=== PATIENT | male | born 1950 | race Caucasian/White ===

== ENCOUNTER 2022-03-12 10:00 | Outpatient (RCR) | payer MEDICARE, SELFPAY | END 2022-05-07 15:05 | disposition home or self-care (01) | PROVIDERS: PCP Family Medicine; Visit Provider Orthopaedic Surgery | DX: M17.11 Unilateral primary osteoarthritis, right knee (principal); Z51.89 Encounter for other specified aftercare | CPT/HCPCS: 97110; 97112; 97140; 97162 ==

== ENCOUNTER 2024-11-15 19:02 | Emergency (ER) | payer MEDICARE, SELFPAY ==
--- OUTSIDE RECORDS SUMMARY | 2024-11-15 19:04 | XMS_ITS | Clinical Summary ---
Author Organization [facility] Address [address] [place] [address] Care Team Providers Care Front End Developer Designer Name Role Phone Kristen Radha LUCIANO Unavailable [phone] Diogenes Gregory MD Unavailable [phone] Alok Mayifeld MD Primary Care Provider Allergies Active Allergy Reactions Criticality Noted Date Comments Atorvastatin Other - Describe In Comment Field Low 12/14/2016 Muscle twitching Able to tolerate statin at lower dosage Pravastatin Other - Describe In Comment Field Low 03/15/2017 Muscle twitching at 40 mg dosing Able to tolerate medication at a lower dosage Medications MICROLET LANCET 3 times daily. 03/25/19 20 Active CONTOUR NEXT METER U UTD 03/25/19 20 Active blood sugar diagnostic (Contour Next Test Strips) stripIndications:T ype 2 diabetes mellitus without complication, without long-term current use of insulin (HC) Test once daily. Dispense item covered by pt ins. 100 Each 3 04/24/19 24 Active lisinopriL 10 mg tabletIndications: Benign essential HTN Take 1 Tablet (10 mg) by mouth once daily. 90 Tablet 3 06/30/19 25 Active metFORMIN 500 mg Extended-Release tabletIndications: Type 2 diabetes mellitus without complication, without long-term current use of insulin (HC) Take 3 Tablets (1,500 mg) by mouth once daily with evening meal. 270 Tablet 1 06/30/19 25 Active dulaglutide (Trulicity) 3 mg/0.5 mL subcutaneous penIndications:Typ e 2 diabetes mellitus without complication, without long-term current use of insulin (HC) Inject 3 mg subcutaneous once weekly. 6 mL 1 06/30/19 25 Active levothyroxine 50 mcg tabletIndications: Hypothyroidism (acquired) Take 1 Tablet (50 mcg) by mouth before breakfast. 90 Tablet 3 07/01/19 25 Active benzonatate 100 mg capsuleIndications :Acute cough Take 1 Capsule (100 mg) by mouth 3 times daily if needed for Cough. 21 Capsule 07/31/19 25 Active ezetimibe (ZETIA) 10 mg tabletIndications: Hyperlipidemia, unspecified hyperlipidemia type Take 1 Tablet (10 mg) by mouth once daily. 90 Tablet 1 11/13/19 25 Active ezetimibe 10 mg tabletIndications: Hyperlipidemia, unspecified hyperlipidemia type Take 1 Tablet (10 mg) by mouth once daily. 90 Tablet 3 06/30/19 25 025 Discontin ued(*Avai lability/ Formulary change/Co st of medicatio n) Active Problems Problem Noted Date Diagnosed Date Hypothyroidism (acquired) 06/19/2023 Peyronie disease 08/24/2022 Arthritis of right knee 12/22/2021 Schwannoma 09/13/2016 Type 2 diabetes mellitus without complication Palpitations 11/30/2014 Benign essential HTN 11/02/2013 Other and unspecified hyperlipidemia 03/07/2006 Peripheral neuropathy Overview (12/20/2023): Saw neurologist November 2023. Thought to have diabetic neuropathy. Workup negative for other causes. 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 12/20/2023 Diabetes mellitus due to und erlying condition with hyperosmolarity and coma, with long-term current use of insulin 04/19/2021 11/13/2021 Muscle twitching 07/13/2020 12/20/2023 DM (diabetes mellitus) 04/09/201307/01 Knee pain 11/07/2007 01/15/2012 Subclinical hypothyroidism 0 06/19/2023 Encounters Date Type Department Care Team Description 11/11/2024 Refill [facility] [address] [place] [address] Alok Mayfield MD Refill Request (Ezetimibe) 08/18/2024 Orders Only [facility] Scanner 1 scan: (1-Ord) TAREEN DERMATOLOGY, BIOPSY BY SHAVE METHOD, 08/18/2024 from Last 3 Months Immunizations Immunization Administration Dates Next Due COVID-19 VACCINE SPIKEVAX (M ODERNA 50MCG/0.5ML) 12YO+ PFS 06/29/2024,12/20/2023,06/19/2023,2022 COVID-19 vaccine (Moderna 100mcg/0.5mL) PF, MDV 04/22/2020,03/25/2020 COVID-19 vaccine (Pfizer-Bio NTech 30mcg/0.3mL) 12YO+ BIVALENT PF, MDV 11/20/2021 Hepatitis B (Adult) 10/28/2015,11/30/2014,2014 Imovax 05/16/2017,05/13/2017 Influenza, IIV4 10/28/2015,11/30/2014 Influenza, IIV4 (=>6mos) MDV 12/14/2016 Influenza, Inactivated AIIV4 (Age 65+ Years) Preserv Free 12/10/2022,11/20/2021,12/15/2020,2019 Influenza, Inactivated IIV3 (Age 65+ Years) Preserv Free 12/20/2023,03/30/2019 Pneumococcal Poly,23-Valent (Pneumovax) 10/02/2019,06/08/2014 Pneumococcal conj 13-Valent (Prevnar 13) 03/15/2017 Rabavert 05/27/2017,05/20/2017 Td, Preservative Free (age > = 7 Years) 09/13/2016 Tdap 12/18/2006 Zoster (Shingrix-RZV, recombinant) 05/31/2020, Family History Medical History Relation Name Comments Diabetes Brother 3 Heart Disease Father d49 fatal Heart Disease Maternal Uncle 3 paternal u ncles, all before age 55 Other Mother Cancer-colon Neg. Cancer-prostate Paternal Uncle Diabetes Sister 3 Heart attack Sister 3 Relation Name Status Comments Brother 1 Alive Diabetes Brother 2 Alive Brother 3 Daughter Alive Father (Age 49) Heart enrique ck Maternal Uncle Mother (Age 82) pulmonary fibroises Neg. Paternal Uncle Sister 1 Alive Diabetes Sister 2 Alive Sister 3 Son Alive Social History Tobacco Use Types Packs/Day Years Used Date Smoking Tobacco: Former Cigarettes 1 7 Cigars Smokeless Tobacco: Never Tobacco Cessation:Counseling Given: No Alcohol Use Standard Drinks/Week Comments Yes 0 (1 standard drink = 0.6 oz pur e alcohol) 3-4 drinks per week PHQ-2 Answer Date Recorded PHQ-2 TOTAL SCORE 0 06/29/2024 Social Connections Answer Date Recorded Do you often feel lonely or isolated from those around you? 0 06/29/2024 Financial Resource Strain Answer Date R ecorded Difficulty of Paying Living Expenses 3 06/29/2024 Difficulty of Paying Living Expenses Not on file 06/29/2024 Food Insecurity Answer Date Recorded Do you worry your food will run out before you are able to buy more? 1 06/29/2024 Transportation Needs Answer Date Record ed Does lack of transportation keep you from medica l appointments? 1 06/29/2024 Does lack of transportation keep you from work, meetings or getting things that you need? 1 06/29/2024 Housing Stability Answer Date Recorded What is your housing situation today? 1 06/29/2024 Utilities Answer Date Recorded Do you have trouble paying f or utilities (for example, heat, electricity, water, phone)? 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 Not on file Not on file Obstetrics History Last Filed Vital Signs Vital Sign Reading Time Taken Comments Blood Pressure 112/70 06/29/2024 8:18 AM CDT Pulse 62 06/29/2024 8:18 AM CDT Temperature 36.7 C (98 F) 09/12/2021 11:39 AM CDT Respiratory Rate 16 11/02/2013 9:15 AM CDT Oxygen Saturation 100% 06/29/2024 8:18 AM CDT Inhaled Oxygen Concentration - - Weight 73 kg (161 lb) 06/29/2024 8:18 AM CDT Height 167.6 cm (5' 6) 06/29/2024 8:18 AM CDT Body Mass Index 25.99 06/29/2024 8:18 AM CDT Plan of Treatment Upcoming Encounters Date Type Department Care Team (Late st Contact Info) Description 12/29/2024 8:00 AM PRODUCTION EDITOR Orders Only [facility] [address] [place] [address] [place], [place] 12/30/2024 8:25 AM PRODUCTION EDITOR Office Visit [facility] [address] [place] [address] Alok Mayfield MD [address] [place] [address] Health Maintenance Due Date Last Done Comments AAA screening age 65-74 02/01/2017 Colonoscopy through age 75 08/11/2024 08/11/2014, Influenza Vaccine (#1) 2024 , 12/10/2022, 11/20/2021, Additional history exists BMI (ht and wt on same day) for age 18+ 06/29/2025 06/29/2024, 06/19/2023, 05/23/2022, Additional history exists Depression screening for age 12+ 06/30/2025 06/30/2024, 06/29/2024, 06/20/2023, Additional history exists Medicare Wellness for age 65+ 06/30/2025, 06/19/2023, 05/23/2022, Additional history exists Tetanus booster 09/13/2026 09/13/2016, 12/18/2006 RSV vaccine for adults or (1 - 1-dose 75+ series) 02/01/2027 Lipids for age 45-75 12/17/2028 12/18/2023, 12/03/2022, 10/24/2021, Additional history exists Hepatitis B series for 19+ Completed 10/27, 11/30/2014, 06/08/2014 Hepatitis C screening for ag e 18-79 Completed 10/28/2015 Pneumococcal series for age 50+ Completed 10/02/2019, 03/15/2017, 06/08/2014 Zoster (shingles) series for age 50+ Completed 05/31/2020, 01/09/2020 COVID-19 vaccine series Completed 06/30/19 25, 12/20/2023, 06/19/2023, Additional history exists Procedures Procedure Name Priority Date/Time Associated Diagnosis Comments SCAN-OPERATIVE/PRO CEDURE REPORT 08/18/2024 12:00 AM CDT LIPID PANEL W REFLEX MEASURED LDL Routine 12/18/2023 7:30 AM CDT Hyperlipidemia, unspecified hyperlipidemia type ANTI HCV Routine 10/28/2015 11:52 AM CDT Need for hepatitis C screening test from Last 3 Months or Most Recently Relevant to Health Maintenance Results * SCAN-OPERATIVE/PROCEDURE REPORT (08/18/2024 12:00 AM CDT) us Scanner OTHER Final Result * (ABNORMAL) LIPID PANEL W REFLEX MEASURED LDL (12/18/2023 7:30 AM CDT) CHOLESTEROL, TOTAL 177 <200 mg/dL [facility] HDL CHOLESTEROL 51 > OR = 40 mg/dL [facility] TRIGLYCERIDES 147 <150 mg/dL [facility] LDL-CHOLESTEROL 102(H) mg/dL (calc) [facility] Comment: Reference range: <100 Desirable range <100 mg/dL for primary prevention; <70 mg/dL for patients with CHD or diabetic patients with > or = 2 CHD risk factors. LDL-C is now calculated using the Mychal-Derek calculation, which is a validated novel method providing better accuracy than the Friedewald equation in the estimation of LDL-C. Mychal BEAULIEU et al. AVE. 2013;310(19): 9404-3192 (http://education.EventKloud.beModel/faq/ELQ920) CHOL/HDLC RATIO 3.5 <5.0 (calc) [facility] NON HDL CHOLESTEROL 126 <130 mg/dL (calc) [facility] Comment: For patients with diabetes plus 1 major ASCVD risk factor, treating to a non-HDL-C goal of <100 mg/dL (LDL-C of <70 mg/dL) is considered a therapeutic option. Blood BLOOD SPECIMEN / Unknown 12/18/2023 7:30 AM CDT 12/18/2023 7:31 AM CDT Narrative [facility] - 12/19/2023 4:18 AM CDT FASTING:YES FASTING: YES us Alok Mayfield MD CHEMISTRY Final Result Performing Organization Address City/[facility]/ZIP Co de Phone Number [facility] [address] [place] [address], [employer] [employer] [address] * ANTI HCV [[id number]] (10/28/2015 11:52 AM CDT) HEPATITIS C ANTIBODY Non-Reacti ve Non-Reacti ve 10/28/2015 5:35 PM CDT [email or web address] Blood BLOOD SPECIMEN / Unknown Venipuncture / Unknown 10/28/2015 11:52 AM CDT 10/28/2015 11:52 AM CDT Narrative [facility] - 10/28/2015 5:35 PM CDT Antibodies to HCV not detected; does not exclude the possibility of exposure to HCV. us Alok Mayfield MD SEND OUTS Final Result [email or web address] [address] [place] [address], [place] from Last 3 Months or Most Recently Relevant to Health Maintenance Insurance [employer] [facility] [place] [id number] MEDICARE PART A HB ONLY BLUE CROSS MEDICARE ADVANTAGE MR Care Teams Front End Developer Designer Relationship Specialty Start Date End Date Alok Mayfield MD [address] [place] [address] PCP - General Family Practice 05/21/14 Radha Peterson OD [facility] [address] [place] [address] Lottery Office Manager 01/15/12 Diogenes Gregory [facility] [address] [place] [address] Neurosurgery 03/31/13
[2024-11-15 19:08] VITALS: BP 182/92; PULSE 93; RESP 16; TEMP 36.6; O2SAT 99; BMI 25.0
--- NOTE | 2024-11-15 19:25 | ED.CHESTPAIN ---
HPI - Chest Pain General Time Seen by Provider: 19:25 Date Seen: 11/15/24 Chief Complaint: Chest Pain Stated Complaint: Chest Discomfort Time Seen by Provider: 11/15/24 19:19 Source: patient, RN notes reviewed and old records reviewed Mode of arrival: ambulatory Limitations: no limitations History of Present Illness HPI narrative: 74-year-old male who comes in today with right-sided chest pain. Patient notes for the last couple of weeks he has had intermittent right-sided chest pain. Does not seem to be related to activity, last about 30 minutes and then will go away, will happen a couple of times a day. No shortness of breath although when the pain is present and does tend to be worse if he takes a big breath, some movements will make it worse as well. No known injury, no nausea vomiting, is not taking anything for this. When the pain is present he notes an area of point tenderness just to the right of the breast bone. Related Data Home Medications ?Medication ?Instructions ?Recorded ?Confirmed dulaglutide 3 mg/0.5 mL 3 mg subcut 11/15/24 subcutaneous pen injector ([facility]) ezetimibe 10 mg tablet 10 mg PO DAILY 11/15/24 11/15/24 levothyroxine 50 mcg tablet 50 mcg PO QAM 11/15/24 11/15/24 lisinopril 10 mg tablet 10 mg PO DAILY 11/15/24 11/15/24 metformin 500 mg tablet,extended 500 mg PO 3XD 11/15/24 11/15/24 release 24 hr Allergies Allergy/AdvReac Type Severity Reaction Status Date / Time Ycgoeho-QMN-ImD Reductase AdvReac Cramping Verified 11/15/24 19:12 Inhibitor of the Muscles PFSH PFSH Social History Do you use any of these nicotine containing products: None Non-prescribed substance use: denies use Exam Narrative Exam Narrative: General: Well-developed and well-nourished, no acute distress Head: Atraumatic and normocephalic Eyes: Pupils are equal reactive, extraocular motions intact, conjunctiva clear ENT: External nose and ears are normal, posterior pharynx without erythema or exudate Neck: No midline cervical tenderness, full spontaneous range of motion the neck, trachea midline, no adenopathy Heart: Regular rate and rhythm no murmurs or thrills Lungs: Clear to auscultation bilaterally without wheezes or crackles Abdomen: Soft, nontender, nondistended with active bowel sounds Musculoskeletal: No tenderness, deformity, or edema Neurologic: Awake, alert, and oriented x3, no gross focal neurologic deficits, cranial nerves intact as tested Psych: Mood and affect are appropriate Skin: No rashes Const Vital Signs, click to edit/add: Vital Signs - 24 hr 11/15/24 19:08 Temperature 98 F Pulse Rate [Pulse Oximeter] 93 Respiratory Rate 16 Blood Pressure [Right Upper Arm] 182/92 H Pulse Oximetry 99 Oxygen Delivery Method Room Air Course Course ED Course: Reviewed most recent primary care visit from June 2024 which was a Medicare annual physical, at that time no specific concerns, history with hypertension as well as diabetes on Trulicity, ezetimib, Synthroid, lisinopril, and metformin, that time had good control of diabetes and hypertension. Most recent prior cardiac evaluation with echo and stress test in 2010. Patient presents today with right-sided chest pain which is been going on for couple of weeks, intermittent lasting about 30 minutes at a time and when present worse with movement and deep breathing, no associated symptoms and no radiation. He says when he has the pain it is reproducible with palpation, he currently has no pain and has no chest wall tenderness. On exam finally stable, lungs are clear, no chest wall tenderness as previously stated. Symptoms are atypical for ACS, and sound most consistent with musculoskeletal pain. However given age and risk factors, EKG and troponin are ordered along with D-dimer and chest x-ray. If these are negative, patient will be given a dose of Decadron anticipate discharge. Reevaluation(s) Time of Reevaluation #1: 20:49 Reevaluation #1: EKG independently interpreted by me performed at 8:00 p.m. demonstrates sinus rhythm rate 80, right bundle-branch block, no acute ischemic changes , normal axis, MT 182, QTC 445. No prior for comparison. Labs and bili interpreted by me with negative troponin. Chest x-ray independently interpreted by me negative for acute findings. Time of Reevaluation #2: 21:18 Reevaluation #2: Labs independently interpreted by me with normal basic panel, D-dimer is pending. Magnesium level is normal. Anticipate discharge. Time of Reevaluation #3: 21:36 Reevaluation #3: Labs independently interpreted by me with negative D-dimer. Patient is stable for discharge, negative troponin normal EKG, pain is atypical and acute coronary syndrome is clinically unlikely. Negative D-dimer, normal chest x-ray, patient's pain seems most consistent with musculoskeletal pain, was given Decadron in the emergency department and can follow up with primary care. Vital Signs Vital signs: Initial Vital Signs Temperature 98 F 11/15/24 19:08 Temperature Source Temporal Artery Scan 11/15/24 19:08 Pulse Rate 93 11/15/24 19:08 Respiratory Rate 16 11/15/24 19:08 Blood Pressure 182/92 H 11/15/24 19:08 Blood Pressure Mean 122 H 11/15/24 19:08 Blood Pressure Position Sitting 11/15/24 19:08 Pulse Oximetry 99 11/15/24 19:08 Oxygen Delivery Method Room Air 11/15/24 19:08 Vital Signs Temperature 98 F 11/15/24 19:08 Pulse Rate 93 11/15/24 19:08 Respiratory Rate 16 11/15/24 19:08 Blood Pressure 182/92 H 11/15/24 19:08 Pulse Oximetry 99 11/15/24 19:08 Oxygen Delivery Method Room Air 11/15/24 19:08 Temperature 98 F 11/15/24 19:08 Pulse Rate 93 11/15/24 19:08 Respiratory Rate 16 11/15/24 19:08 Blood Pressure 182/92 H 11/15/24 19:08 Pulse Oximetry 99 11/15/24 19:08 Oxygen Delivery Method Room Air 11/15/24 19:08 Medications Administered Medications: Discontinued Medications Generic Name Dose Route Start Last Admin Trade Name Adolfoq PRN Reason Stop Dose Admin Dexamethasone 10 mg 11/15/24 19:45 11/15/24 20:35 Dexamethasone 4 Mg/Ml Vial IVP 11/15/24 19:46 10 mg ONCE ONE Administration MDM - Chest Pain Lab Data Labs: Lab Results 11/15/24 Range/Units 20:13 D-Dimer Quant (PE/DVT) 0.37 (0.00-0.50) ug/ml Sodium 132 L (135-149) mmol/L Potassium 4.3 (3.6-5.1) mmol/L Chloride 97 (96-114) mmol/L Carbon Dioxide 26 (20-32) mmol/L Anion Gap 9 (7-15) mEq/L BUN 20 (7-30) mg/dL Creatinine 1.2 (0.5-1.5) mg/dL Estimated Creat Clear 50.21 Estimated GFR 64 ml/min Glucose 224 H (60-115) mg/dL Calcium 9.2 (8.4-10.6) mg/dL Magnesium 1.9 (1.5-2.6) mg/dL POC Troponin I 0.00 L (0.01-0.04) ng/ml Discharge Plan Discharge Clinical Impression: Atypical chest pain, Hypertension, Type 2 diabetes mellitus Patient Disposition: Home, Self-Care Condition: Stable Instructions: Chest Wall Pain (ED) Additional Instructions: Continue activity as tolerated Take Tylenol and ibuprofen as needed for pain Follow-up with your primary care doctor in 1 week if symptoms do not improve Activity Level: No Restrictions Discharge Diet: Regular Prescriptions: No Action levothyroxine 50 mcg tablet 50 mcg PO QAM lisinopril 10 mg tablet 10 mg PO DAILY metformin 500 mg tablet extended release 24 hr 500 mg PO 3XD ezetimibe 10 mg tablet 10 mg PO DAILY Trulicity 3 mg/0.5 mL pen injector 3 mg subcut Follow Up/Referrals: Alok Mayfield MD [Primary Care Provider, Family Practice] Stand Alone Forms: MyHealth Info Instructions
--- NOTE | 2024-11-15 19:45 | CRLHL7_ITS ---
For Patients: As a result of the Century Cures Act, medical imaging exams and procedure reports are released immediately into your electronic medical record. You may view this report before your referring provider. If you have questions, please contact your health care provider. Indication: Chest pain. Technique: Chest two views. Comparison: None. Findings/Impression: The heart is not abnormally enlarged. Mediastinal contours are grossly within normal limits. No confluent airspace opacity. No pleural effusion or pneumothorax. No acute osseous abnormality. Dictated by Ford Bradley MD @ 11/15/2024 8:46:33 PM (Electronically Signed)
[2024-11-15 20:40] LABS: Troponin, Point-of-Care* 0.00 ng/ml (0.01-0.04)
[2024-11-15 20:59] LABS: D Dimer Quantitative* 0.37 ug/ml (0.00-0.50)
[2024-11-15 21:10] LABS: Chloride* 97 mmol/L (96-114); Potassium* 4.3 mmol/L (3.6-5.1); Sodium* 132 mmol/L (135-149)
[2024-11-15 21:13] LABS: Anion Gap 9 mEq/L (7-15); Blood Urea Nitrogen* 20 mg/dL (7-30); Calcium* 9.2 mg/dL (8.4-10.6); Carbon Dioxide* 26 mmol/L (20-32); Creatinine* 1.2 mg/dL (0.5-1.5); Est. Creatinine Clearance* 50.21; Estimated Glomerular Filt Rate 64 ml/min; Glucose* 224 mg/dL (60-115)
== END 2024-11-15 21:53 | disposition home or self-care (01) ==
LOC: ED 20:16
PROVIDERS: Emergency Provider Family Medicine; PCP Family Medicine
DX: R07.89 Other chest pain (principal); I10 Essential (primary) hypertension; E11.9 Type 2 diabetes mellitus without complications; Z79.85 Long-term (current) use of injectable non-insulin antidiabetic drugs; Z79.84 Long term (current) use of oral hypoglycemic drugs; Z79.899 Other long term (current) drug therapy
CPT/HCPCS: 36415; 71046; 80048; 83735; 84484; 85379; 93005; 96374; 99284; 99285; J1100